=== PATIENT | female | born 1990 | race Caucasian/White ===

== ENCOUNTER 2022-05-22 01:09 | Inpatient (IN) | payer OTHER ==
[~2022-05-22] VITALS: Ht 167.6 cm; Wt 81.0 kg
[2022-05-22 02:05] LABS: Basophils # (auto) 0.1 10 ^3/uL (0-0.2); Eosinophils # (auto) 0 10 ^3/uL (0-0.8); Eosinophils % (auto) 0.2 % (0.0-7.0); Hemoglobin 10.4 g/dL (12.2-16.2); Lymphocytes # (auto) 1.6 10 ^3/uL (0.4-5.4); Monocytes # (auto) 0.7 10 ^3/uL (0-1.3)
[2022-05-22 02:06] LABS: Basophils % (auto) 0.4 % (0.0-2.0); Hematocrit 33.2 % (36.0-46.0); Lymphocytes % (auto) 11.4 % (10.0-50.0); Mean Corpuscular Hemoglobin 20.6 pg (28.0-32.0); Mean Corpuscular Hgb Conc. 31.4 g/dL (32.0-36.0); Mean Corpuscular Volume 65.8 fL (80.0-100.0); Monocytes % (auto) 5.1 % (0.0-12.0); Neutrophils # (auto) 11.6 10 ^3/uL (1.6-8.6); Neutrophils % (auto) 82.9 % (37.0-80.0); Nucleated Red Blood Cells % 0.1 %; Red Blood Cells 5.04 10^6/uL (4.0-5.20); Red Cell Distribution Width 17.1 % (11.8-14.3)
[2022-05-22 02:23] LABS: Albumin 3.7 g/dL (3.4-5.0); Calcium 8.8 mg/dL (8.5-10.1); Potassium 3.9 mmol/L (3.5-5.1)
[2022-05-22 02:30] LABS: BUN/Creatinine Ratio 8.6; Bilirubin, Total 0.3 mg/dL (0.2-1.0); Total Protein 7.6 g/dL (6.4-8.2)
[2022-05-22 02:36] LABS: Urine Bacteria NONE SEEN /hpf (None Seen); Urine Blood Negative /uL (Negative); Urine Mucus FEW (None Seen); Urine Specific Gravity 1.013 (1.001-1.035); Urine WBC 262 /hpf (0 - 5); Urine WBC Clumps PRESENT /hpf (None Seen)
[2022-05-22] MEDS ORDERED: ONDANSETRON ODT 4 MG TAB PO ONE (05:00)
[2022-05-22] MEDS ORDERED: cefTRIAXone 1GM/50ML D5W 50 ML IV ONE (05:00)
[2022-05-22] MEDS ORDERED: HYDROcodone-ACET 5/325MG TAB PO ONE (05:00)
[2022-05-22] MEDS ORDERED: KETOROLAC TROMETH 30 MG/ML 1ML VIAL IV ONE (05:00)
[2022-05-22] MEDS ORDERED: SODIUM CHLORIDE 0.9% 1,000 ML IV ONE ×3 (05:15→13:00)
[2022-05-22] MEDS ORDERED: fentaNYL CITRATE 100 MCG/2 ML VL IV ONE (05:15)
[2022-05-22] MEDS ORDERED: NITR-87 PO (12:46)
[2022-05-22] MEDS ORDERED: IBU600T PO (12:49)
[2022-05-22] MEDS ORDERED: ACETAMINOPHEN 325 MG TAB PO PRN (13:00)
[2022-05-22] MEDS ORDERED: DOCUSATE SOD 100 MG CAP PO PRN (13:00)
[2022-05-22] MEDS: MORPHINE SULFATE INJ 2 MG/ml SYRG IV PRN ×2 (14:47→23:01)
[2022-05-22] MEDS: HYDROcodone-ACET 5/325MG TAB PO PRN (17:28)
[2022-05-22 21:56] VITALS: BP 103/69
[2022-05-23] MEDS: MORPHINE SULFATE INJ 2 MG/ml SYRG IV PRN (01:29)
[2022-05-23 05:21] VITALS: BP 108/60
[2022-05-23] MEDS ORDERED: CIPR500T4 PO (06:58)
[2022-05-23] MEDS ORDERED: SODIUM CHLORIDE 0.9% 1,000 ML IV ONE (07:00)
[2022-05-23] MEDS: HYDROcodone-ACET 5/325MG TAB PO PRN (07:38)
[2022-05-23 08:50] LABS: Basophils # (auto) 0 10 ^3/uL (0-0.2); Basophils % (auto) 0.4 % (0.0-2.0); Eosinophils # (auto) 0 10 ^3/uL (0-0.8); Eosinophils % (auto) 0.3 % (0.0-7.0); Hemoglobin 8.7 g/dL (12.2-16.2); Mean Corpuscular Volume 66.8 fL (80.0-100.0)
[2022-05-23 08:52] LABS: Lymphocytes # (auto) 1.6 10 ^3/uL (0.4-5.4); Lymphocytes % (auto) 19.7 % (10.0-50.0); Mean Corpuscular Hemoglobin 21.6 pg (28.0-32.0); Mean Corpuscular Hgb Conc. 32.3 g/dL (32.0-36.0); Monocytes # (auto) 0.8 10 ^3/uL (0-1.3); Monocytes % (auto) 9.1 % (0.0-12.0); Neutrophils # (auto) 5.9 10 ^3/uL (1.6-8.6); Neutrophils % (auto) 70.5 % (37.0-80.0); Red Blood Cells 4.04 10^6/uL (4.0-5.20); Red Cell Distribution Width 16.9 % (11.8-14.3); White Blood Cell 8.3 10^3/uL (4.4-10.8)
[2022-05-23 08:58] LABS: Potassium 4.1 mmol/L (3.5-5.1)
[2022-05-23 09:00] VITALS: BP 116/76
[2022-05-23 09:03] LABS: BUN/Creatinine Ratio 11.1; Calcium 7.9 mg/dL (8.5-10.1)
[2022-05-23] MEDS ORDERED: cefTRIAXone 1GM/50ML D5W 50 ML IV SCH (10:00)
[2022-05-23 10:21] VITALS: BP 116/76
== END 2022-05-23 11:00 | disposition home or self-care (01) | DRG 690 ==
LOC: ER 01:18 → OVERFLOW 13:25 → CENTRAL 21:10
PROVIDERS: ADMIT Internal Medicine; ATTEND Internal Medicine
DX: N12 Tubulo-interstitial nephritis, not specified as acute or chronic (principal); Z87.442 Personal history of urinary calculi; Z20.822 Contact with and (suspected) exposure to COVID-19
CPT/HCPCS: 36415; 74176; 80048; 80053; 81001; 83605; 83690; 85025; 87086; 96365; 96375; G0378; J0696; J1885; Q0162

== ENCOUNTER 2023-08-14 09:40 | Inpatient (IN) | payer OTHER ==
[~2023-08-14] VITALS: Ht 167.6 cm; Wt 105.2 kg
[~2023-08-14 09:40] MED LIST: CIPR500T4 PO; IBU600T PO
[2023-08-14] MEDS ORDERED: ONDANSETRON HCL 4 MG/2 ML VIAL IM ONE (10:00)
[2023-08-14] MEDS ORDERED: SODIUM CHLORIDE 0.9% 1,000 ML IV ONE ×2 (10:00)
[2023-08-14] MEDS ORDERED: MORPHINE SULFATE 4 MG/ML SYR/VIAL IM ONE (10:00)
[2023-08-14 10:28] LABS: Basophils # (auto) 0.1 10 ^3/uL (0-0.2); Eosinophils # (auto) 0.1 10 ^3/uL (0-0.8); Hemoglobin 11.1 g/dL (12.2-16.2); Lymphocytes # (auto) 1.9 10 ^3/uL (0.4-5.4); Mean Corpuscular Hemoglobin 20.5 pg (28.0-32.0); Mean Corpuscular Hgb Conc. 30.7 g/dL (32.0-36.0); Monocytes # (auto) 0.6 10 ^3/uL (0-1.3); Monocytes % (auto) 7.4 % (0.0-12.0); Red Cell Distribution Width 17.8 % (11.8-14.3)
[2023-08-14 10:31] LABS: Basophils % (auto) 0.6 % (0.0-2.0); Eosinophils % (auto) 1.4 % (0.0-7.0); Hematocrit 36.1 % (36.0-46.0); Lymphocytes % (auto) 23.3 % (10.0-50.0); Mean Corpuscular Volume 66.6 fL (80.0-100.0); Neutrophils # (auto) 5.6 10 ^3/uL (1.6-8.6); Neutrophils % (auto) 67.3 % (37.0-80.0); Red Blood Cells 5.41 10^6/uL (4.0-5.20); White Blood Cell 8.3 10^3/uL (4.4-10.8)
[2023-08-14 11:06] LABS: Alanine Aminotransferase 18 U/L (7-40); Albumin 4.5 g/dL (3.2-4.8); Alkaline Phosphatase 110 U/L (46-116); Anion Gap 11 (5-15); Aspartate Aminotransferase 32 U/L (13-40); BUN/Creatinine Ratio 10.8 (10.0-20.0); Bilirubin, Total 0.3 mg/dL (0.2-1.0); Blood Urea Nitrogen 9 mg/dL (9-23); Calcium 9.4 mg/dL (8.5-10.1); Carbon Dioxide 21 mmol/L (20-30); Chloride 106 mmol/L (98-107); Glucose 94 mg/dL (74-106); Potassium 4.5 mmol/L (3.5-5.1); Sodium 138 mmol/L (136-145); Total Protein 7.3 g/dL (5.7-8.2)
[2023-08-14 11:13] LABS: Platelet Estimate Adequate
[2023-08-14 11:14] LABS: Hypochromia Marked; Ovalocytes FEW
[2023-08-14 11:15] LABS: Anisocytosis Slight
[2023-08-14 11:32] LABS: Lactic Acid w/Reflex 2.1 mmol/L (0.4-2.0)
[2023-08-14 11:39] LABS: Lipase 40 U/L (12-53)
[2023-08-14] MEDS ORDERED: HYDROmorphone HCL 2 MG/ML VL/or syr IV STA (12:47)
[2023-08-14] MEDS ORDERED: DICYCLOMINE HCL (10MG/ML) 2 ML AMPULE IM STA (12:47)
[2023-08-14] MEDS ORDERED: DOCUSATE SOD 100 MG CAP PO PRN (13:00)
[2023-08-14] MEDS ORDERED: DICYCLOMINE HCL (10MG/ML) 2 ML AMPULE IM PRN (13:00)
[2023-08-14] MEDS ORDERED: PIPERACILLIN-TAZOB 3.375GM 100 ML IV ONE (13:30)
[2023-08-14] MEDS ORDERED: IOHEXOL 300 MG/ML 100ML BOTTLE IJ ONE (13:41)
[2023-08-14] MEDS: SODIUM CHLORIDE 0.9% 1,000 ML IV SCH (16:24)
[2023-08-14 18:01] VITALS: PULSE 69; RESP 18; O2SAT 100
[2023-08-14] MEDS: ONDANSETRON HCL 4 MG/2 ML VIAL IV PRN (18:52)
[2023-08-14] MEDS: HYDROmorphone HCL 2 MG/ML VL/or syr IV PRN (18:55)
[2023-08-14] MEDS: PIPERACILLIN-TAZOB 3.375GM 100 ML IV SCH (20:00)
[2023-08-14 22:50] VITALS: BP 105/73; PULSE 60; RESP 17; TEMP 98.2; O2SAT 95
[2023-08-14 23:06] VITALS: PULSE 89; RESP 17
[2023-08-15] MEDS: HYDROmorphone HCL 2 MG/ML VL/or syr IV PRN ×5 (00:31→18:54)
[2023-08-15] MEDS: ONDANSETRON HCL 4 MG/2 ML VIAL IV PRN ×4 (00:32→16:39)
[2023-08-15] MEDS: SODIUM CHLORIDE 0.9% 1,000 ML IV SCH ×3 (00:39→14:00)
[2023-08-15] MEDS: PIPERACILLIN-TAZOB 3.375GM 100 ML IV SCH ×4 (02:25→20:01)
[2023-08-15 05:00] VITALS: BP 93/56; PULSE 74; RESP 16; TEMP 98.3; O2SAT 95
[2023-08-15 05:44] LABS: Basophils # (auto) 0 10 ^3/uL (0-0.2); Mean Corpuscular Hemoglobin 20.4 pg (28.0-32.0); Monocytes # (auto) 0.5 10 ^3/uL (0-1.3); Red Blood Cells 4.63 10^6/uL (4.0-5.20); Red Cell Distribution Width 17.7 % (11.8-14.3)
[2023-08-15 05:47] LABS: Basophils % (auto) 0.4 % (0.0-2.0); Eosinophils # (auto) 0.1 10 ^3/uL (0-0.8); Eosinophils % (auto) 0.6 % (0.0-7.0); Hematocrit 30.7 % (36.0-46.0); Hemoglobin 9.4 g/dL (12.2-16.2); Lymphocytes # (auto) 1.6 10 ^3/uL (0.4-5.4); Lymphocytes % (auto) 18.1 % (10.0-50.0); Mean Corpuscular Hgb Conc. 30.7 g/dL (32.0-36.0); Mean Corpuscular Volume 66.4 fL (80.0-100.0); Monocytes % (auto) 5.2 % (0.0-12.0); Neutrophils # (auto) 6.9 10 ^3/uL (1.6-8.6); Neutrophils % (auto) 75.7 % (37.0-80.0); White Blood Cell 9.1 10^3/uL (4.4-10.8)
[2023-08-15 06:14] LABS: Albumin 3.9 g/dL (3.2-4.8); Alkaline Phosphatase 87 U/L (46-116); Aspartate Aminotransferase 14 U/L (13-40)
[2023-08-15 06:15] LABS: Anion Gap 8 (5-15); BUN/Creatinine Ratio 6.8 (10.0-20.0); Bilirubin, Total 0.4 mg/dL (0.2-1.0); Blood Urea Nitrogen 5 mg/dL (9-23); Calcium 8.2 mg/dL (8.7-10.4); Carbon Dioxide 24 mmol/L (20-30); Chloride 106 mmol/L (98-107); Glucose 94 mg/dL (74-106); Potassium 3.5 mmol/L (3.5-5.1); Sodium 138 mmol/L (136-145); Total Protein 6.3 g/dL (5.7-8.2)
[2023-08-15 06:51] LABS: Alanine Aminotransferase 15 U/L (7-40)
[2023-08-15 08:54] VITALS: BP 100/60; PULSE 92; RESP 18; TEMP 98.1; O2SAT 94
[2023-08-15 10:29] LABS: Urine Bacteria NONE SEEN /hpf (None Seen); Urine Blood Negative /uL (Negative); Urine Clarity Clear (Clear); Urine Color Yellow (Yellow); Urine Mucus FEW (None Seen); Urine Protein, UAD Negative (Negative); Urine Specific Gravity 1.027 (1.001-1.035); Urine Urobilinogen Normal (Negative); Urine WBC 1 /hpf (0 - 5); Urine pH 5.5 (5.0-8.0)
[2023-08-15 12:08] VITALS: BP 131/70; PULSE 73; RESP 20; TEMP 98.5; O2SAT 94
[2023-08-15 17:27] VITALS: BP 99/58; PULSE 80; RESP 20; TEMP 98.5; O2SAT 96
[2023-08-15] MEDS ORDERED: diphenhdrAMINE HCL 25 MG CAP PO ONE (19:15)
[2023-08-15 22:00] VITALS: BP 114/73; PULSE 60; RESP 17; TEMP 98.5; O2SAT 99
[2023-08-16] MEDS: PIPERACILLIN-TAZOB 3.375GM 100 ML IV SCH ×4 (01:46→20:36)
[2023-08-16] MEDS: SODIUM CHLORIDE 0.9% 1,000 ML IV SCH ×4 (01:46→23:20)
[2023-08-16] MEDS: HYDROmorphone HCL 2 MG/ML VL/or syr IV PRN ×3 (01:56→12:44)
[2023-08-16 05:00] VITALS: BP 109/69; PULSE 71; RESP 18; TEMP 98.2; O2SAT 96
[2023-08-16 07:05] LABS: Basophils # (auto) 0 10 ^3/uL (0-0.2); Eosinophils # (auto) 0.1 10 ^3/uL (0-0.8); Hemoglobin 8.8 g/dL (12.2-16.2); Monocytes # (auto) 0.5 10 ^3/uL (0-1.3); Neutrophils # (auto) 4.5 10 ^3/uL (1.6-8.6); White Blood Cell 6.9 10^3/uL (4.4-10.8)
[2023-08-16 07:08] LABS: Basophils % (auto) 0.4 % (0.0-2.0); Eosinophils % (auto) 1.5 % (0.0-7.0); Hematocrit 28.4 % (36.0-46.0); Lymphocytes # (auto) 1.9 10 ^3/uL (0.4-5.4); Lymphocytes % (auto) 26.9 % (10.0-50.0); Mean Corpuscular Hemoglobin 20.5 pg (28.0-32.0); Mean Corpuscular Hgb Conc. 30.9 g/dL (32.0-36.0); Mean Corpuscular Volume 66.1 fL (80.0-100.0); Monocytes % (auto) 6.8 % (0.0-12.0); Neutrophils % (auto) 64.4 % (37.0-80.0); Nucleated Red Blood Cells % 0.1 %; Red Blood Cells 4.29 10^6/uL (4.0-5.20); Red Cell Distribution Width 17.6 % (11.8-14.3)
[2023-08-16 07:12] LABS: Alanine Aminotransferase 11 U/L (7-40); Albumin 3.6 g/dL (3.2-4.8); Alkaline Phosphatase 75 U/L (46-116); Anion Gap 8 (5-15); Aspartate Aminotransferase 13 U/L (13-40); BUN/Creatinine Ratio 7.1 (10.0-20.0); Blood Urea Nitrogen 6 mg/dL (9-23); Calcium 8.4 mg/dL (8.7-10.4); Carbon Dioxide 26 mmol/L (20-30); Chloride 107 mmol/L (98-107); Glucose 75 mg/dL (74-106); Potassium 3.5 mmol/L (3.5-5.1); Sodium 141 mmol/L (136-145)
[2023-08-16 07:13] LABS: Bilirubin, Total 0.4 mg/dL (0.2-1.0); Total Protein 5.9 g/dL (5.7-8.2)
[2023-08-16 09:00] VITALS: BP 118/80; PULSE 78; RESP 18; TEMP 98.6; O2SAT 100
[2023-08-16 11:08] LABS: Anisocytosis Slight; Ovalocytes FEW; Platelet Estimate Adequate
[2023-08-16 11:09] LABS: Hypochromia Marked
[2023-08-16 13:00] VITALS: BP 113/76; PULSE 79; RESP 18; TEMP 98.6; O2SAT 96
[2023-08-16] MEDS: diphenhdrAMINE HCL 50 MG/1 ML VL IV PRN ×3 (13:34→20:36)
[2023-08-16 17:00] VITALS: BP 109/82; PULSE 76; RESP 17; TEMP 97.9; O2SAT 97
[2023-08-16 20:00] VITALS: RESP 18
[2023-08-17] VITALS (7 sets, daily range): BP systolic 98–127; BP diastolic 50–91; PULSE 68–79; RESP 14–18; TEMP 97.7–98.7; O2SAT 94–98
[2023-08-17] MEDS: diphenhdrAMINE HCL 50 MG/1 ML VL IV PRN ×2 (02:07→18:55)
[2023-08-17] MEDS: PIPERACILLIN-TAZOB 3.375GM 100 ML IV SCH ×4 (02:07→20:06)
[2023-08-17] MEDS: HYDROmorphone HCL 2 MG/ML VL/or syr IV PRN ×4 (02:21→20:06)
[2023-08-17 06:07] LABS: Basophils # (auto) 0 10 ^3/uL (0-0.2); Eosinophils # (auto) 0.1 10 ^3/uL (0-0.8); Hemoglobin 8.9 g/dL (12.2-16.2); Lymphocytes # (auto) 1.7 10 ^3/uL (0.4-5.4); Monocytes # (auto) 0.5 10 ^3/uL (0-1.3); Neutrophils # (auto) 3.5 10 ^3/uL (1.6-8.6); Nucleated Red Blood Cells % 0.1 %; White Blood Cell 5.8 10^3/uL (4.4-10.8)
[2023-08-17 06:09] LABS: Basophils % (auto) 0.7 % (0.0-2.0); Hematocrit 29.3 % (36.0-46.0); Lymphocytes % (auto) 29.6 % (10.0-50.0); Mean Corpuscular Hemoglobin 20.3 pg (28.0-32.0); Mean Corpuscular Hgb Conc. 30.4 g/dL (32.0-36.0); Neutrophils % (auto) 59.7 % (37.0-80.0); Red Blood Cells 4.37 10^6/uL (4.0-5.20); Red Cell Distribution Width 17.7 % (11.8-14.3)
[2023-08-17 06:22] LABS: Alanine Aminotransferase 10 U/L (7-40); Albumin 3.6 g/dL (3.2-4.8); Alkaline Phosphatase 74 U/L (46-116); Anion Gap 7 (5-15); Calcium 8.5 mg/dL (8.5-10.1); Carbon Dioxide 26 mmol/L (20-30); Chloride 108 mmol/L (98-107); Glucose 85 mg/dL (74-106); Potassium 3.5 mmol/L (3.5-5.1); Sodium 141 mmol/L (136-145)
[2023-08-17 06:23] LABS: Aspartate Aminotransferase 15 U/L (13-40); Bilirubin, Total 0.4 mg/dL (0.2-1.0); Total Protein 5.8 g/dL (5.7-8.2)
[2023-08-17 06:44] LABS: BUN/Creatinine Ratio 5.8 (10.0-20.0); Blood Urea Nitrogen < 5 mg/dL (9-23)
[2023-08-17] MEDS: SODIUM CHLORIDE 0.9% 1,000 ML IV SCH ×2 (07:40→16:00)
[2023-08-18] MEDS: HYDROmorphone HCL 2 MG/ML VL/or syr IV PRN ×2 (00:36→05:20)
[2023-08-18] MEDS: diphenhdrAMINE HCL 50 MG/1 ML VL IV PRN (01:50)
[2023-08-18] MEDS: PIPERACILLIN-TAZOB 3.375GM 100 ML IV SCH (01:50)
[2023-08-18 04:38] VITALS: BP 116/73; PULSE 66; RESP 16; TEMP 98.6; O2SAT 96
[2023-08-18] MEDS: SODIUM CHLORIDE 0.9% 1,000 ML IV SCH (06:51)
[2023-08-18 08:00] VITALS: RESP 18
[2023-08-18 08:38] VITALS: BP 110/77; PULSE 61; RESP 17; TEMP 98.9; O2SAT 96
[2023-08-18] MEDS ORDERED: METR-344 PO (09:11)
[2023-08-18] MEDS ORDERED: LEVO500T91 PO (09:11)
== END 2023-08-18 14:15 | disposition home or self-care (01) | DRG 392 ==
LOC: ER 09:40 → OVERFLOW 12:54 → EAST 20:58
PROVIDERS: ADMIT Nurse Practitioner Family; ATTEND Family Medicine
DX: K57.92 Diverticulitis of intestine, part unspecified, without perforation or abscess without bleeding (principal); E86.0 Dehydration; N20.0 Calculus of kidney; D64.9 Anemia, unspecified; R00.0 Tachycardia, unspecified; F17.290 Nicotine dependence, other tobacco product, uncomplicated; Z80.3 Family history of malignant neoplasm of breast; Z83.3 Family history of diabetes mellitus
CPT/HCPCS: 36415; 74176; 74177; 76705; 76830; 76856; 80053; 81001; 83605; 83690; 84702; 85025; 87040; 96361; 96374; 96375; G0378; J2405; J2543